=== PATIENT | male | born 1960 ===

== ENCOUNTER 2025-04-17 08:00 | Outpatient (CLI) | payer OTHER ==
[~2025-04-17] VITALS: Ht 172.7 cm; Wt 120.2 kg
[2025-04-17 08:20] LABS: URINE APPEARANCE Clear; URINE BILIRRUBIN Negative (NEGATIVE); URINE BLOOD Negative; URINE COLOR Yellow; URINE KETONE Negative (NEGATIVE); URINE LEUKOCYTE Negative; URINE NITRATE Negative; URINE PROTEIN Negative (NEGATIVE); URINE UROBILINOGEN 0.2 E.U./dl
[2025-04-17 08:24] LABS: URINE BACTERIA 9.5 uL (0.0-1933)
[2025-04-17 08:27] LABS: BASO % 1.5 % (0.1-1.2); EOS # 0.38 (0.04-0.54); EOS % 4.8 % (0.7-7.0); LYMPH # 2.15 (1.18-3.74); LYMPH % 27.2 % (19.3-53.1); MEAN PLATELET VOLUME 11.70 fl (9.4-12.4); MONO # 0.54 (0.24-0.82); MONO % 6.8 % (4.7-12.5); NEUT # 4.67 (1.56-6.13); NEUT % 59.3 % (34.0-71.1); RED CELL DISTRIBUTION WIDTH 12.8 % (11.6-14.4)
[2025-04-17] MEDS ORDERED: TOPROL XL100 M1 PO (08:27)
[2025-04-17 08:28] LABS: URINE CAST 0.00 uL (0.0-1.40); URINE EPITHELIAL CELLS 0.6 uL (0.0-38.8); URINE GLUCOSE >=1000 MG/DL (NEGATIVE); URINE RBC 0.8 uL (0.0-20.8); URINE WBC 0.7 uL (0.0-23.2)
[2025-04-17] MEDS ORDERED: VASOTEC20 MG PO (08:28)
[2025-04-17] MEDS ORDERED: METFORMIN HCL1000 M2 PO (08:28)
[2025-04-17] MEDS ORDERED: NOVOLOG100 UNIT/1 (08:29)
[2025-04-17] MEDS ORDERED: HORIZANT300 MG PO (08:30)
[2025-04-17 08:31] VITALS: BP 150/94
[2025-04-17 09:02] LABS: INR 1.03
[2025-04-17 09:12] LABS: ALT/SGPT 80.0 U/L (12-78); AST/SGOT 39.0 U/L (15-37); BILIRUBIN TOTAL 0.83 mg/dL (0.3-1.2); BUN CREA RATIO 17.0 (7.0-25.0); CREATININE SERUM 1.08 mg/dL (0.70-1.30); GFR 69.28; GLOBULINA 3.4 G/DL (2.4-3.5); OSMOLALITY SERUM 291.0 MOSM/KG (275-295)
[2025-04-17 09:15] LABS: GLUCOSE FASTING 341.0 mg/dL (65-100)
== END 2025-04-17 08:10 | disposition home or self-care (01) ==
LOC: RAD 08:00 → CIR.AMB 04-23 07:00 → EDSTATUS 04-23 07:00 → CIR.AMB 04-23 09:00
PROVIDERS: ATTEND Specialist
DX: D17.22 Benign lipomatous neoplasm of skin and subcutaneous tissue of left arm (principal); I10 Essential (primary) hypertension; E11.9 Type 2 diabetes mellitus without complications